=== PATIENT | female | born 1965 | race Two or more races ===

== ENCOUNTER 2016-05-29 21:08 | Inpatient (IN) | payer BC, MEDICAID ==
[~2016-05-29] VITALS: Ht 160 cm; Wt 490.3 kg
[2016-05-30] MEDS ORDERED: METO-306 PO (00:26)
[2016-05-30 00:51] VITALS: BP 155/64
[2016-05-30] MEDS ORDERED: ACETAMINOPHEN 325 MG TABLET PO PRN (01:00)
[2016-05-30] MEDS ORDERED: ENOXAPARIN SODIUM 40 MG/0.4 ML DISP.SYRIN SQ SCH (01:00)
[2016-05-30] MEDS ORDERED: MAGNESIUM HYDROXIDE 30 ML UDC PO PRN (01:00)
[2016-05-30] MEDS ORDERED: Z GUARD REMEDY 2 OZ OINT TP PRN (01:00)
[2016-05-30] MEDS ORDERED: HYDROCODONE/APAP 5/325MG 1 EACH TABLET PO PRN (01:00)
[2016-05-30] MEDS ORDERED: MAG HYDROX/AL HYDROX/SIMETH 30 ML UDC PO PRN (01:00)
[2016-05-30] MEDS ORDERED: ZOLPIDEM TARTRATE 5 MG TABLET PO PRN (01:00)
[2016-05-30] MEDS ORDERED: ONDANSETRON HCL/PF 4 MG/2 ML VIAL IVP PRN (01:00)
[2016-05-30] MEDS ORDERED: METOPROLOL TARTRATE 50 MG TABLET ONE (02:03)
[2016-05-30] MEDS ORDERED: METOPROLOL SUCCINATE 50 MG TAB.SR.24H PO ONE (02:16)
[2016-05-30] MEDS: METOPROLOL SUCCINATE 50 MG TAB.SR.24H PO SCH (02:20)
[2016-05-30 08:00] VITALS: BP 157/69
[2016-05-30] MEDS ORDERED: CINA30TA PO (08:14)
[2016-05-30] MEDS ORDERED: SEVE800T PO (08:14)
[2016-05-30] MEDS ORDERED: PANT40TA2 PO (08:14)
[2016-05-30] MEDS ORDERED: NIFE60TA2 PO (08:14)
[2016-05-30 08:40] LABS: CREATININE 5.3 mg/dL (0.6-1.3); POTASSIUM 4.2 mmol/L (3.5-5.1)
[2016-05-30] MEDS: PANTOPRAZOLE 40 MG TABLET.DR PO SCH (08:40)
[2016-05-30 11:07] LABS: BASOPHILS % (AUTO) 0.8 % (0.0-2.0); DIFF TOTAL % 100 %; EOSINOPHILS # (AUTO) 0.2 /CMM (0.0-0.7); EOSINOPHILS % (AUTO) 4.1 % (0.0-6.0); HEMATOCRIT 32 % (33-45); HEMOGLOBIN 10.5 g/dL (11.5-14.8); LYMPHOCYTES # (AUTO) 0.7 /CMM (0.8-4.8); LYMPHOCYTES % (AUTO) 14.8 % (20.0-44.0); MEAN CORPUSCULAR HEMOGLOBIN 32 PG (26.0-33.0); MEAN CORPUSCULAR HGB CONC 33 g/dl (31.0-36.0); MEAN CORPUSCULAR VOLUME 96 fL (82-100); MONOCYTES # (AUTO) 0.3 /CMM (0.1-1.30); MONOCYTES % (AUTO) 7.4 % (2.0-12.0); NEUTROPHILS # (AUTO) 3.3 /CMM (1.8-8.9); NEUTROPHILS % (AUTO) 72.9 % (43.0-81.0); PLATELET COUNT (AUTO) 157 /CMM (150-450); RED BLOOD CELL COUNT(AUTO) 3.28 MIL/uL (4.0-5.2); WHITE BLOOD COUNT (AUTO) 4.6 K/uL (4.3-11.0)
[2016-05-30 11:16] LABS: ALBUMIN 3.8 g/dL (3.4-5.0); BILIRUBIN,DIRECT 0.1 mg/dL (0.0-0.2); BILIRUBIN,TOTAL 0.5 mg/dL (0.2-1.0); INDIRECT BILIRUBIN 0.4 mg/dL (0.0-1.1); PHOSPHORUS 3.4 mg/dL (2.5-4.9); TOTAL PROTEIN, SERUM 7.6 g/dL (6.4-8.2)
[2016-05-30 11:40] LABS: THYROID STIMULATING HORMONE 1.035 uIU/mL (0.358-3.74)
[2016-05-30 16:00] VITALS: BP 176/75
[2016-05-30 16:30] VITALS: BP 147/72
[2016-05-30] MEDS: SEVELAMER CARBONATE 800 MG TABLET PO SCH (17:18)
[2016-05-30 20:00] VITALS: BP 149/73
[2016-05-30] MEDS: ASPIRIN 81 MG TAB.CHEW PO SCH (20:24)
[2016-05-30] MEDS: HEPARIN SODIUM, PORCINE 5000 UNITS/1 ML VIAL SQ SCH (20:26)
[2016-05-31] VITALS: BP 133/65
[2016-05-31] MEDS: METOPROLOL SUCCINATE 50 MG TAB.SR.24H PO SCH ×2 (01:00→02:04)
[2016-05-31 04:00] VITALS: BP 153/71
[2016-05-31 06:25] LABS: CALCIUM, SERUM 9.1 mg/dL (8.5-10.1); PHOSPHORUS 3.4 mg/dL (2.5-4.9); POTASSIUM 4.2 mmol/L (3.5-5.1)
[2016-05-31 06:34] LABS: TROPONIN I 0.167 ng/mL (0.00-0.056)
[2016-05-31 06:41] LABS: BASOPHILS % (AUTO) 0.6 % (0.0-2.0); DIFF TOTAL % 100 %; EOSINOPHILS # (AUTO) 0.2 /CMM (0.0-0.7); EOSINOPHILS % (AUTO) 2.9 % (0.0-6.0); HEMATOCRIT 30 % (33-45); LYMPHOCYTES # (AUTO) 0.7 /CMM (0.8-4.8); LYMPHOCYTES % (AUTO) 12.7 % (20.0-44.0); MEAN CORPUSCULAR HEMOGLOBIN 32 PG (26.0-33.0); MEAN CORPUSCULAR HGB CONC 33 g/dl (31.0-36.0); MEAN CORPUSCULAR VOLUME 96 fL (82-100); MONOCYTES # (AUTO) 0.5 /CMM (0.1-1.30); MONOCYTES % (AUTO) 9.8 % (2.0-12.0); PLATELET COUNT (AUTO) 149 /CMM (150-450); RED BLOOD CELL COUNT(AUTO) 3.16 MIL/uL (4.0-5.2); WHITE BLOOD COUNT (AUTO) 5.4 K/uL (4.3-11.0)
[2016-05-31 07:05] VITALS: BP 150/69
[2016-05-31 08:00] VITALS: BP 150/69
[2016-05-31] MEDS: PANTOPRAZOLE 40 MG TABLET.DR PO SCH (08:23)
[2016-05-31] MEDS: ASPIRIN 81 MG TAB.CHEW PO SCH (08:23)
[2016-05-31] MEDS: SEVELAMER CARBONATE 800 MG TABLET PO SCH ×2 (08:23→12:53)
[2016-05-31 08:24] VITALS: BP 150/69
[2016-05-31] MEDS: HEPARIN SODIUM, PORCINE 5000 UNITS/1 ML VIAL SQ SCH (08:25)
[2016-05-31] MEDS ORDERED: NIFEdipine XL (30MG) 30 MG TAB PO SCH (09:00)
[2016-05-31] MEDS ORDERED: CINACALCET HCL 30 MG TABLET PO SCH (09:00)
[2016-05-31] MEDS ORDERED: ASPI81TA2 PO (14:03)
== END 2016-05-31 15:30 | disposition home or self-care (01) | DRG 308 ==
LOC: MED 23:34 → TELE 05-30 01:33 → MED 05-30 11:16 → TELE 05-30 11:16 → MED 05-31 10:17
PROVIDERS: ADMIT Internal Medicine; ATTEND Internal Medicine
PROC: 5A1D00Z (ICD-10-PCS; principal; 2016-05-30)
DX: R00.2 Palpitations (principal); N18.6 End stage renal disease; I12.0 Hypertensive chronic kidney disease with stage 5 chronic kidney disease or end stage renal disease; D63.8 Anemia in other chronic diseases classified elsewhere; Z99.2 Dependence on renal dialysis; E21.3 Hyperparathyroidism, unspecified
CPT/HCPCS: 36415; 71010-TC; 80048-TC; 80061-TC; 80076-TC; 82306; 83735-TC; 84100-TC; 84439-TC; 84443-TC; 84484-TC; 85025-TC; 87081-TC; 90935-TC; 93307-TC; J1644; J2405

== ENCOUNTER 2018-09-26 08:35 | Inpatient (IN) | payer BC, MEDICAID, OTHER ==
[2018-09-26] VITALS (24 sets, daily range): BP systolic 130–180; BP diastolic 60–112
[~2018-09-26] VITALS: Ht 165.1 cm; Wt 54.9 kg
[~2018-09-26 08:35] MED LIST: ASPI-1169 PO; CINA30TA2 PO; METO-358 PO; NIFE60TA2 PO; PANT40TA2 PO; SEVE800T7 PO
[2018-09-26 08:51] LABS: BASOPHILS # (AUTO) 0.1 /CMM (0.0-0.2); BASOPHILS % (AUTO) 0.9 % (0.0-2.0); HEMATOCRIT 32 % (33-45); HEMOGLOBIN 10.7 g/dL (11.5-14.8); LYMPHOCYTES # (AUTO) 0.9 /CMM (0.8-4.8); LYMPHOCYTES % (AUTO) 10.3 % (20.0-44.0); MEAN CORPUSCULAR HGB CONC 33 g/dl (31.0-36.0); MEAN CORPUSCULAR VOLUME 100 fL (82-100); MONOCYTES # (AUTO) 0.4 /CMM (0.1-1.30); MONOCYTES % (AUTO) 4.6 % (2.0-12.0); NEUTROPHILS # (AUTO) 7.3 /CMM (1.8-8.9); NEUTROPHILS % (AUTO) 83.2 % (43.0-81.0); PLATELET COUNT (AUTO) 204 /CMM (150-450); RED BLOOD CELL COUNT(AUTO) 3.25 MIL/uL (4.0-5.2); WHITE BLOOD COUNT (AUTO) 8.8 K/uL (4.3-11.0)
[2018-09-26 09:01] LABS: CALCIUM, SERUM 8.7 mg/dL (8.5-10.1)
[2018-09-26 09:05] LABS: CREATININE 11.4 mg/dL (0.6-1.3); POTASSIUM 7.2 mmol/L (3.5-5.1)
[2018-09-26] MEDS ORDERED: CALCIUM CHLORIDE 1,000 MG/10 ML DISP.SYRIN ONE (09:07)
[2018-09-26] MEDS ORDERED: SODIUM BICARBONATE SYR 50 MEQ/50 ML DISP.SYRIN ONE (09:07)
[2018-09-26] MEDS ORDERED: DEXTROSE 50%-WATER 50 ML DISP.SYRIN ONE (09:07)
[2018-09-26] MEDS ORDERED: INSULIN REGULAR, HUMAN 100 UNIT/ML 10 ML VIAL ONE (09:07)
[2018-09-26] MEDS ORDERED: METO100T14 PO (09:25)
[2018-09-26] MEDS ORDERED: ASPI81TA44 PO (09:25)
[2018-09-26] MEDS ORDERED: CINA30TA2 PO (09:25)
[2018-09-26] MEDS ORDERED: VIT1TABL46 PO (09:25)
[2018-09-26] MEDS ORDERED: DILT120T2 PO (09:25)
[2018-09-26] MEDS ORDERED: OMEP20CA10 PO (09:25)
--- NOTE | 2018-09-26 09:25 | NUR ---
[facility] CALLED. GERALDINE MOOND.
[2018-09-26] MEDS ORDERED: CALCIUM CHLORIDE 1,000 MG/10 ML DISP.SYRIN IV ONE (09:30)
[2018-09-26] MEDS ORDERED: SODIUM POLYSTYRENE SULFONATE 15 G/60 ML BOTTLE PO ONE (09:30)
[2018-09-26] MEDS ORDERED: INSULIN REGULAR, HUMAN 100 UNIT/ML 10 ML VIAL IV ONE (09:30)
[2018-09-26] MEDS ORDERED: DEXTROSE 50%-WATER 50 ML DISP.SYRIN IV ONE (09:30)
[2018-09-26] MEDS ORDERED: SODIUM BICARBONATE SYR 50 MEQ/50 ML DISP.SYRIN IV ONE (09:30)
--- NOTE | 2018-09-26 09:36 | NUR ---
EPIC CALLED ANDONIAN PAGED
--- NOTE | 2018-09-26 09:41 | NUR ---
CALLED [facility] [phone] DR. JENNINGS
--- NOTE | 2018-09-26 10:30 | NUR ---
REPORT GIVEN TO LOBITO MARTIN FOR CONTINUITY OF CARE IN ICU
--- NOTE | 2018-09-26 11:00 | NUR ---
DRYWALL FINISHING FOREMAN ADMITTING NOTES: 1100H Rec'd pt from ER, transported via gurney. Pt is A/O x 4. No SOB while on room air. Placed on telemonitor, SB 58bpm. Has R AC G20, SL, flushing well, w/ no s/sx of infection/infiltration noted. L AVF, +bruit/thrill (L arm prec observed). Pt oriented to room. 1130H HD tx consent secured & signed by pt. Placed in the chart. HD started c/o Celia MARTIN. 1140H Pt seen & examined by Dr. Valerio w/ orders made & carried out. 1410H HD ended w/ 1.5 L out. Pt tolerated well.
[2018-09-26] MEDS ORDERED: ONDANSETRON HCL/PF 4 MG/2 ML VIAL IVP PRN (12:00)
[2018-09-26] MEDS ORDERED: ACETAMINOPHEN 325 MG TABLET PO PRN (12:00)
[2018-09-26] MEDS ORDERED: HYDROCODONE/APAP 5/325MG 1 EACH TABLET PO PRN (12:00)
[2018-09-26] MEDS ORDERED: MAG HYDROX/AL HYDROX/SIMETH 30 ML UDC PO PRN (12:00)
[2018-09-26] MEDS ORDERED: Z GUARD REMEDY 2 OZ OINT TP PRN (12:00)
[2018-09-26] MEDS ORDERED: MAGNESIUM HYDROXIDE 30 ML UDC PO PRN (12:00)
[2018-09-26] MEDS ORDERED: ZOLPIDEM TARTRATE 5 MG TABLET PO PRN (12:00)
[2018-09-26] MEDS: SEVELAMER CARBONATE 800 MG TABLET PO SCH ×2 (13:34→17:12)
--- NOTE | 2018-09-26 18:23 | NUR ---
RN CLOSING NOTES: No significant changes noted w/in shift. Pt resting comfortably at bedside, no c/o pain/discomfort. IV line access kept patent & intact. Safety precaution kept in place at all times w/ bed in lowest & locked pos. Call light placed w/in reach. Will endorse to PM RN for LUIS.
--- NOTE | 2018-09-26 19:30 | NUR ---
ENGINEERING SPECIALIST TECHNICIAN NOTE RECEIVED PT A/O X4 AND ABLE TO VERBALIZE NEEDS. FAMILY AT BEDSIDE. ON ROOM AIR AND SATURATING WELL. BREATHING REGULAR AND UNLABORED. TELE-SR 60'S. NO C/O PAIN OR DISTRESS NOTED. IV R ARM CLEAN AND DRY. LEFT ARM AV FISTULA IN PLACE WITH POSITIVE BRUIT AND THRILL PRESENT. NO BP OR VENIPUNCTURE PRECAUTIONS TO LEFT ARM OBSERVED. CALL LIGHT WITHIN REACH. WILL CONTINUE TO MONITOR.
[2018-09-26] MEDS ORDERED: DILTIAZEM HCL CD 180 MG PO SCH (22:00)
[2018-09-27] VITALS (17 sets, daily range): BP systolic 131–182; BP diastolic 61–94
--- NOTE | 2018-09-27 02:39 | NUR ---
HAM FACER NOTE PT SBP 170'S AND ASYMPTOMATIC. SPOKE WITH MEDICAL EDUCATOR ANRAYAN DNP WITH ORDERS TO GIVE HYDRALAZINE 10MG PO Q6H PRN FOR SBP >160. ORDERS NOTED AND CARRIED OUT. WILL MONITOR.
[2018-09-27] MEDS ORDERED: hydrALAZINE HCL 10 MG TABLET PO PRN (03:00)
[2018-09-27 04:37] LABS: CALCIUM, SERUM 8.9 mg/dL (8.5-10.1); MAGNESIUM 2.6 mg/dL (1.8-2.4); PHOSPHORUS 5.4 mg/dL (2.5-4.9); POTASSIUM 4.4 mmol/L (3.5-5.1)
[2018-09-27 04:44] LABS: BASOPHILS # (AUTO) 0.1 /CMM (0.0-0.2); BASOPHILS % (AUTO) 1.3 % (0.0-2.0); EOSINOPHILS % (AUTO) 1.8 % (0.0-6.0); HEMATOCRIT 29 % (33-45); HEMOGLOBIN 9.8 g/dL (11.5-14.8); LYMPHOCYTES # (AUTO) 0.8 /CMM (0.8-4.8); MEAN CORPUSCULAR HGB CONC 34 g/dl (31.0-36.0); MEAN CORPUSCULAR VOLUME 97 fL (82-100); MONOCYTES # (AUTO) 0.5 /CMM (0.1-1.30); MONOCYTES % (AUTO) 10.2 % (2.0-12.0); NEUTROPHILS # (AUTO) 3.2 /CMM (1.8-8.9); NEUTROPHILS % (AUTO) 68.7 % (43.0-81.0); PLATELET COUNT (AUTO) 151 /CMM (150-450); RED BLOOD CELL COUNT(AUTO) 2.98 MIL/uL (4.0-5.2); WHITE BLOOD COUNT (AUTO) 4.7 K/uL (4.3-11.0)
[2018-09-27] MEDS ORDERED: PANTOPRAZOLE 40 MG TABLET.DR PO SCH (07:30)
[2018-09-27] MEDS: SEVELAMER CARBONATE 800 MG TABLET PO SCH ×2 (07:38→12:05)
[2018-09-27] MEDS: AMLODIPINE BESYLATE 10 MG TABLET PO SCH ×3 (08:26→09:00)
--- NOTE | 2018-09-27 08:54 | NUR ---
Confirmed w/ Andrea HD RN that pt will have HD today. BP med held at this time.
[2018-09-27] MEDS ORDERED: ASPIRIN EC 81 MG TABLET.DR PO SCH (09:00)
[2018-09-27] MEDS ORDERED: VIT B CMPLX 3/FA/VIT C/BIOTIN 1 TAB TABLET PO SCH (09:00)
[2018-09-27] MEDS ORDERED: CINACALCET HCL 30 MG TABLET PO SCH (09:00)
--- NOTE | 2018-09-27 11:32 | NUR ---
Pt seen & examined by Dr. Wetzel w/ orders to DC pt to home today after HD.
[2018-09-27] MEDS ORDERED: AMLO10TA7 PO (12:46)
--- NOTE | 2018-09-27 15:46 | NUR ---
DATA MANAGEMENTELECTRONIC ASSEMBLY NOTES: Pt DC'd to home, self care as ordered. DC instructions & education provided to the pt w/ verbalization of understanding. IV line access removed, pressure dressing applied, no bleeding noted. Pt tolerated HD tx c/o [place], CORBY RN w/ 1L output. VS WNL. Skin remains intact. All belongings sent w/ pt, per pt nothing is missing. Family at bedside. Pt left the unit in stable condition, ambulatory w/ steady gait. No concerns/issues identified during DC.
[2018-09-28] MEDS ORDERED: ALBU18HF2 IH (17:11)
== END 2018-09-27 15:45 | disposition home or self-care (01) | DRG 201 ==
LOC: ER 08:35 → ICU 11:00
PROVIDERS: ADMIT Family Medicine
DX: R00.1 Bradycardia, unspecified (principal); I21.A1 Myocardial infarction type 2; I12.0 Hypertensive chronic kidney disease with stage 5 chronic kidney disease or end stage renal disease; N18.6 End stage renal disease; E87.5 Hyperkalemia; D63.1 Anemia in chronic kidney disease; Z99.2 Dependence on renal dialysis; N25.81 Secondary hyperparathyroidism of renal origin; K21.9 Gastro-esophageal reflux disease without esophagitis; Z90.12 Acquired absence of left breast and nipple; Z79.82 Long term (current) use of aspirin; Z79.899 Other long term (current) drug therapy; Z82.49 Family history of ischemic heart disease and other diseases of the circulatory system; Z82.3 Family history of stroke; D63.8 Anemia in other chronic diseases classified elsewhere; Y92.009 Unspecified place in unspecified non-institutional (private) residence as the place of occurrence of the external cause; T44.7X5A Adverse effect of beta-adrenoreceptor antagonists, initial encounter; T46.1X5A Adverse effect of calcium-channel blockers, initial encounter; R73.9 Hyperglycemia, unspecified
CPT/HCPCS: 36415; 71045-TC; 80048-TC; 80061-TC; 83735-TC; 84100-TC; 84484-TC; 85025-TC; 86706; 86803; 87081-TC; 87340; 90935-TC; 93307-TC; A6402; G0378; J1815; J3490

== ENCOUNTER 2018-09-28 15:08 | Inpatient (IN) | payer OTHER ==
[~2018-09-28] VITALS: Ht 154.9 cm; Wt 53.5 kg
[~2018-09-28 15:08] MED LIST changes: +AMLO10TA7 PO; -ASPI-1169 PO; +ASPI81TA44 PO; -METO-358 PO; -NIFE60TA2 PO; +OMEP20CA10 PO; -PANT40TA2 PO; +VIT1TABL46 PO
--- NOTE | 2018-09-28 15:30 | NUR ---
PATIENT BIB FAMILY FOR PALPITATION WHILE HAVING DIALYSIS, DIALYZED FOR 1HR OUT OF 3 HRS AND 45MINS, DENIES ANY CP. ON ROOM AIR, BREATHING EVENLY AND UNLABORED. CONNECTED TO THE MONITOR AND PULSE OX. KEPT COMFORTABLE, WILL CONTINUE TO MONITOR ACCORDINGLY.
[2018-09-28 15:52] LABS: BASOPHILS # (AUTO) 0.1 /CMM (0.0-0.2); BASOPHILS % (AUTO) 1.2 % (0.0-2.0); EOSINOPHILS % (AUTO) 2.7 % (0.0-6.0); HEMATOCRIT 35 % (33-45); HEMOGLOBIN 12.2 g/dL (11.5-14.8); LYMPHOCYTES # (AUTO) 0.6 /CMM (0.8-4.8); LYMPHOCYTES % (AUTO) 9.9 % (20.0-44.0); MEAN CORPUSCULAR HGB CONC 35 g/dl (31.0-36.0); MEAN CORPUSCULAR VOLUME 97 fL (82-100); MONOCYTES # (AUTO) 0.4 /CMM (0.1-1.30); MONOCYTES % (AUTO) 7.6 % (2.0-12.0); NEUTROPHILS # (AUTO) 4.5 /CMM (1.8-8.9); NEUTROPHILS % (AUTO) 78.6 % (43.0-81.0); PLATELET COUNT (AUTO) 170 /CMM (150-450); RED BLOOD CELL COUNT(AUTO) 3.61 MIL/uL (4.0-5.2); WHITE BLOOD COUNT (AUTO) 5.7 K/uL (4.3-11.0)
[2018-09-28] MEDS ORDERED: DILTIAZEM HCL 25 MG IV ONE (15:56)
[2018-09-28] MEDS ORDERED: DILTIAZEM HCL 50 MG IV IV ONE (16:00)
[2018-09-28 16:12] LABS: CALCIUM, SERUM 9.1 mg/dL (8.5-10.1); CREATININE 5.5 mg/dL (0.6-1.3); POTASSIUM 3.4 mmol/L (3.5-5.1)
[2018-09-28 16:16] LABS: ALBUMIN 3.6 g/dL (3.4-5.0); BILIRUBIN,DIRECT 0.1 mg/dL (0.0-0.2); BILIRUBIN,TOTAL 0.3 mg/dL (0.2-1.0); TOTAL PROTEIN, SERUM 8.1 g/dL (6.4-8.2)
[2018-09-28] MEDS ORDERED: ALBU18HF2 IH (17:11)
--- NOTE | 2018-09-28 18:04 | NUR ---
CALLED FOR BED AND TURNED IN MOVE SHEET
--- NOTE | 2018-09-28 19:25 | NUR ---
in bed restingcomfortably. will cont to monitor l
--- NOTE | 2018-09-28 19:37 | NUR ---
endorsed to next shift RN for matthew.
[2018-09-28 20:15] VITALS: BP 161/71
--- NOTE | 2018-09-28 20:15 | NUR ---
TRANSFERRED TO THIRD FLOOR RM 308-2 UNDER ACLS PROTOCOL. STABLE CONDITION
[2018-09-28] MEDS ORDERED: MAGNESIUM HYDROXIDE 30 ML UDC PO PRN (20:30)
[2018-09-28] MEDS ORDERED: ALBUTEROL FS 2.5 MG/0.5 ML VIAL.NEB NEB PRN (20:30)
[2018-09-28] MEDS ORDERED: ONDANSETRON HCL/PF 4 MG/2 ML VIAL IVP PRN (20:30)
[2018-09-28] MEDS ORDERED: MAG HYDROX/AL HYDROX/SIMETH 30 ML UDC PO PRN (20:30)
[2018-09-28] MEDS ORDERED: HYDROCODONE/APAP 5/325MG 1 EACH TABLET PO PRN (20:30)
[2018-09-28] MEDS ORDERED: TEMAZEPAM 15 MG CAPSULE PO PRN (20:30)
[2018-09-28] MEDS ORDERED: CLONIDINE HCL 0.1 MG TABLET PO PRN (20:30)
[2018-09-28] MEDS ORDERED: MORPHINE SULFATE INJ 2 MG/ML DISP.SYRIN IV PRN (20:30)
[2018-09-28] MEDS ORDERED: ACETAMINOPHEN 325 MG TABLET PO PRN (20:30)
--- NOTE | 2018-09-28 21:00 | NUR ---
LOADING MACHINE OPERATOR ADMISSION NOTES RECEIVED PATIENT FROM ER VIA [facility]. FAMILY AT BESIDE. PATIENT IS ALERT AND ORIENTED X4, VERBALLY RESPONSIVE, ABLE TO MAKE NEEDS KNOWN. SINHALA SPEAKER. BREATHING ERICK AND UNLABORED. NO SOB NOTED. TOLERATING ROOM AIR. DENIES PAIN OR DISCOMFORT. DENIES NAUSEA AND VOMITING. IV ON RIGHT HAND G#20 INTACT AND PATENT. SKIN DRY AND WARM TO TOUCH. AFEBRILE. PATIENT IS AMBULATORY WITH STEADY GAIT. SKIN CHECK RENDERED WITH NO ISSUES NOTED. PATIENT NOTED WITH LEFT UPPER ARM FISTULA - DRESSING CLEAN DRY AND INTACT. ORIENTED TO THE USE OF UNIT AMENITIES. INSTRUCTED TO THE USE OF THE CALL LIGHT. ALL OTHER NEEDS MET. SAFETY MEASURES IN PLACE. CALL LIGHT WITHIN REACH. WILL CONTINUE TO MONITOR.
[2018-09-29] VITALS: BP 155/87
[2018-09-29 04:00] VITALS: BP 157/72
[2018-09-29 06:41] LABS: BASOPHILS % (AUTO) 1.2 % (0.0-2.0); EOSINOPHILS % (AUTO) 4.9 % (0.0-6.0); HEMATOCRIT 31 % (33-45); HEMOGLOBIN 10.5 g/dL (11.5-14.8); LYMPHOCYTES # (AUTO) 0.8 /CMM (0.8-4.8); LYMPHOCYTES % (AUTO) 21.1 % (20.0-44.0); MEAN CORPUSCULAR HGB CONC 34 g/dl (31.0-36.0); MEAN CORPUSCULAR VOLUME 98 fL (82-100); MONOCYTES # (AUTO) 0.4 /CMM (0.1-1.30); MONOCYTES % (AUTO) 10.4 % (2.0-12.0); NEUTROPHILS # (AUTO) 2.2 /CMM (1.8-8.9); NEUTROPHILS % (AUTO) 62.4 % (43.0-81.0); PLATELET COUNT (AUTO) 144 /CMM (150-450); WHITE BLOOD COUNT (AUTO) 3.6 K/uL (4.3-11.0)
--- NOTE | 2018-09-29 06:44 | NUR ---
SPRING MACHINE OPERATOR CLOSING NOTES PATIENT RESTING IN BED. NO ACUTE CHANGES THROUGHOUT OUT SHIFT. IN NO DISTRESS. BREATHING EVEN AND UNLABORED. TOLERATING ROOM AIR. NO COMPLAINTS OF PAIN OR DISCOMFORT. SR ON TELE MONITOR. ALL OTHER NEEDS MET. SAFETY MEASURES IN PLACE. CALL LIGHT WITHIN REACH. WILL ENDORSE TO ONCOMING NURSE FOR LUIS.
[2018-09-29 06:50] LABS: ALBUMIN 3.1 g/dL (3.4-5.0); BILIRUBIN,TOTAL 0.4 mg/dL (0.2-1.0); CALCIUM, SERUM 9.4 mg/dL (8.5-10.1); MAGNESIUM 2.7 mg/dL (1.8-2.4); PHOSPHORUS 5.4 mg/dL (2.5-4.9); POTASSIUM 4.9 mmol/L (3.5-5.1); TOTAL PROTEIN, SERUM 6.6 g/dL (6.4-8.2)
[2018-09-29 06:53] LABS: CREATININE 7.7 mg/dL (0.6-1.3)
[2018-09-29] MEDS ORDERED: OMEPRAZOLE 20 MG CAPSULE.DR PO SCH (07:30)
--- NOTE | 2018-09-29 07:45 | NUR ---
Tele/RN - Assessment Patient awake, A/O x 4, no complaints overnight, denies chest pain/palpitations, no apparent distress noted, afebrile, stable on room air. Tele shows SR, pending cardiac and nephro consult. Labs reviewed, noted with low WBC and albumin, elevated phos and magnesium level. Skin is intact. Patient is ambulatory with steady gait. Patient educated on plan of care. Will continue with current medical management.
[2018-09-29] MEDS: PANTOPRAZOLE 40 MG TABLET.DR PO SCH (07:49)
[2018-09-29] MEDS: SEVELAMER CARBONATE 800 MG TABLET PO SCH ×3 (07:49→17:09)
[2018-09-29 08:00] VITALS: BP 142/78
[2018-09-29] MEDS: AMLODIPINE BESYLATE 10 MG TABLET PO SCH (08:18)
[2018-09-29] MEDS: CINACALCET HCL 30 MG TABLET PO SCH (08:18)
[2018-09-29] MEDS: VIT B CMPLX 3/FA/VIT C/BIOTIN 1 TAB TABLET PO SCH (08:18)
[2018-09-29] MEDS: ASPIRIN EC 81 MG TABLET.DR PO SCH (08:18)
--- NOTE | 2018-09-29 09:15 | NUR ---
Tele/RN - Cardiac consult Seen and examined by Dr. Gautam with order to transfer patient for ablation and continue cardiac monitoring. systems software manager made aware.
--- NOTE | 2018-09-29 10:00 | NUR ---
Tele/RN - HD treatment HD treatment ongoing, denies palpitation/chest pain, will continue to monitor closely.
--- NOTE | 2018-09-29 11:15 | NUR ---
Tele/RN - Nephrology consult Seen and examined by Dr. Lyn with order for HD treatment every other day.
--- NOTE | 2018-09-29 12:00 | NUR ---
Tele/RN - HD treatment HD treatment completed, removed 2 liters, tolerated well.
--- NOTE | 2018-09-29 15:00 | NUR ---
Tele/RN - Notes Per insurance, transfer pt to [facility], accepting doctor is Dr. Aly Kendrick, pending bed availability. Patient made aware.
[2018-09-29 16:00] VITALS: BP 151/70
--- NOTE | 2018-09-29 18:21 | NUR ---
Tele/RN - End of shift summary No significant change in condition seen. Possible transfer tonight if bed is available at [facility]. Per Dr. Kendrick, accepting doctor at [facility], plan for cardiac ablation around 15:00 tomorrow if able to schedule. Will endorse to night nurse accordingly.
--- NOTE | 2018-09-29 19:30 | NUR ---
BEAD MAKER OPENING NOTES RECEIVED PATIENT IN BED AWAKE. FAMILY AT BEDSIDE. PATIENT IS ALERT AND ORIENTED X4, VERBALLY RESPONSIVE, ABLE TO MAKE NEEDS KNOWN. OCCITAN SPEAKER. BREATHING ERICK AND UNLABORED. NO SOB NOTED. TOLERATING ROOM AIR. DENIES PAIN OR DISCOMFORT. NO FACIAL GRIMACING. IV ON RIGHT HAND G#20 INTACT AND PATENT. SKIN DRY AND WARM TO TOUCH. AFEBRILE. ALL OTHER NEEDS MET. SAFETY MEASURES IN PLACE. CALL LIGHT WITHIN REACH. WILL CONTINUE TO MONITOR.
[2018-09-29 20:00] VITALS: BP 129/76
[2018-09-30 00:13] VITALS: BP 152/78
[2018-09-30 05:00] VITALS: BP 146/75
--- NOTE | 2018-09-30 06:36 | NUR ---
PRODUCTION POSTING CLERK CLOSING NOTES PATIENT RESTING IN BED. NO ACUTE CHANGES THROUGHOUT OUT SHIFT. IN NO DISTRESS. BREATHING EVEN AND UNLABORED. TOLERATING ROOM AIR. NO COMPLAINTS OF PAIN OR DISCOMFORT. SR ON TELE MONITOR. ALL OTHER NEEDS MET. ANTICIPATING TRANSFER TO [facility] FOR CARDIAC ABLATION. DISCHARGE PAPER WORK PREPARED. PATIENT KEPT NPO PAST MIDNIGHT FOR PROCEDURE. SAFETY MEASURES IN PLACE. CALL LIGHT WITHIN REACH. WILL ENDORSE TO ONCOMING NURSE FOR LUIS.
[2018-09-30] MEDS: PANTOPRAZOLE 40 MG TABLET.DR PO SCH (07:30)
[2018-09-30] MEDS: SEVELAMER CARBONATE 800 MG TABLET PO SCH ×2 (08:00→13:00)
--- NOTE | 2018-09-30 08:00 | NUR ---
MS RN NOTES PATIENT IN BED RESTING. ALERT, ORIENTED X3 DENIES ANY PAIN OR DISCOMFORT. BED IN LOW LOCKED POSITION. CALL LIGHT WITHIN REACH. PATIENT NPO FOR SCHEDULED PROCEDURE AT [facility]. PERIPHERAL IV INTACT PATENT. WILL CONTINUE TO MONITOR.
[2018-09-30 09:00] VITALS: BP 137/78
[2018-09-30] MEDS: CINACALCET HCL 30 MG TABLET PO SCH (09:00)
[2018-09-30] MEDS: AMLODIPINE BESYLATE 10 MG TABLET PO SCH (09:00)
[2018-09-30] MEDS: ASPIRIN EC 81 MG TABLET.DR PO SCH (09:00)
[2018-09-30] MEDS: VIT B CMPLX 3/FA/VIT C/BIOTIN 1 TAB TABLET PO SCH (09:00)
--- NOTE | 2018-09-30 11:30 | NUR ---
MS RN NOTES PATIENT TRANSFERRED TO [facility] FOR SCHEDULED ABLATION. REPORT GIVEN TO MARISELA MARTIN AT [facility]. PATIENT TO GO TO ROOM 118. PATIENT ALERT, ORIENTED X4 TEACHING PROVIDED OF PROCEDURE AND TRANSFER. VS WNL. PERIPHERAL IV LEFT IN PLACE DUE TO NEEDED USE AT [facility]. PATIENT PICKED UP BY [facility]. ALL MEDICAL RECORDS AND DISCHARGE PAPERS SENT WITH PATIENT.
--- NOTE | 2018-09-30 17:53 | NUR ---
NOTIFIED BY CHARGE NURSE PATIENT RETURNING BUT TO [facility] IN ROOM 107, REPORT GIVEN TO USHA MARTIN AT [facility].
--- NOTE | 2018-09-30 19:15 | NUR ---
RN [facility] NOTE AWAITING PT RETURN FROM OR S/P ABLASION
--- NOTE | 2018-10-01 02:12 | NUR ---
RN [facility] NOTE CALL TO [facility] SPOKE WITH NK, S/P PACEMAKER, REPORTS PT BEING OBSERVED POSSIBLY BEING TRANSFERRED BACK THIS AM
[2018-10-01] MEDS: PANTOPRAZOLE 40 MG TABLET.DR PO SCH (07:30)
[2018-10-01] MEDS: SEVELAMER CARBONATE 800 MG TABLET PO SCH (08:00)
--- NOTE | 2018-10-01 08:00 | NUR ---
RN NOTE: STILL AWAITING FOR PATIENT'S RETURN TO THE HOSPITAL. PER PM SHIFT NURSE REPORT, PATIENT WAS TRANSFERRED TO [facility]. RAISE DRILLER JASBIR WAS MADE AWARE TO FOLLOW-UP ON THE PATIENT'S CASE.
== END 2018-10-01 08:48 | disposition short-term general hospital (02) | DRG 201 ==
LOC: ER 15:10 → TELE 20:20 → MED 09-30 08:44 → TELE-TD 09-30 16:50
PROVIDERS: ADMIT Internal Medicine; ATTEND Internal Medicine
PROC: 5A1D70Z Performance of Urinary Filtration, Intermittent, Less than 6 Hours Per Day (ICD-10-PCS; principal; 2018-09-29)
DX: I48.91 Unspecified atrial fibrillation (principal); I21.4 Non-ST elevation (NSTEMI) myocardial infarction; I13.11 Hypertensive heart and chronic kidney disease without heart failure, with stage 5 chronic kidney disease, or end stage renal disease; N18.6 End stage renal disease; E87.6 Hypokalemia; E21.3 Hyperparathyroidism, unspecified; I25.2 Old myocardial infarction; D64.9 Anemia, unspecified; K21.9 Gastro-esophageal reflux disease without esophagitis; N25.81 Secondary hyperparathyroidism of renal origin; Z79.82 Long term (current) use of aspirin; Z99.2 Dependence on renal dialysis; Z82.49 Family history of ischemic heart disease and other diseases of the circulatory system; Z82.3 Family history of stroke; Z79.899 Other long term (current) drug therapy
CPT/HCPCS: 36415; 71045-TC; 80048-TC; 80053-TC; 80076-TC; 83735-TC; 84100-TC; 84484-TC; 85025-TC; 85730-TC; 87081-TC; 90935-TC; G0378; J3490

== ENCOUNTER 2018-12-21 10:43 | Emergency (ER) | payer OTHER ==
[~2018-12-21] VITALS: Ht 160 cm; Wt 53.1 kg
[~2018-12-21 10:43] MED LIST changes: +ALBU18HF2 IH; -OMEP20CA10 PO; +OMEP20CA11 PO
--- NOTE | 2018-12-21 10:43 | NUR ---
PT BIB SELF C/O NAUSEA AND DIARRHEA FOR 3 DAYS, PT IS AAOX4, NOT IN RESPIRATORY DISTRESS, HOOKED TO MONITOR, KEPT RESTED AND COMFORTABLE, WILL CONTINUE TO MONITOR.
[2018-12-21] MEDS ORDERED: DIPHENOXYLATE HCL/ATROP SULF 1 UDTAB TABLET PO ONE (11:00)
[2018-12-21] MEDS ORDERED: ONDANSETRON 4 MG TAB.RAPDIS SL ONE (11:00)
--- NOTE | 2018-12-21 11:01 | NUR ---
PT SEEN AND EXAMINED BY
[2018-12-21] MEDS ORDERED: ONDANSETRON 4 MG TAB.RAPDIS ONE (11:09)
[2018-12-21] MEDS ORDERED: DIPHENOXYLATE HCL/ATROP SULF 1 UDTAB TABLET ONE (11:10)
--- NOTE | 2018-12-21 11:15 | NUR ---
ER PHLEB AT BEDSIDE FOR BLOOD DRAW.
[2018-12-21 11:23] LABS: BASOPHILS # (AUTO) 0.1 /CMM (0.0-0.2); BASOPHILS % (AUTO) 2.2 % (0.0-2.0); EOSINOPHILS % (AUTO) 2.8 % (0.0-6.0); HEMATOCRIT 35 % (33-45); HEMOGLOBIN 11.4 g/dL (11.5-14.8); LYMPHOCYTES # (AUTO) 0.7 /CMM (0.8-4.8); LYMPHOCYTES % (AUTO) 12.8 % (20.0-44.0); MEAN CORPUSCULAR HGB CONC 32 g/dl (31.0-36.0); MEAN CORPUSCULAR VOLUME 96 fL (82-100); MONOCYTES # (AUTO) 0.5 /CMM (0.1-1.30); NEUTROPHILS # (AUTO) 3.8 /CMM (1.8-8.9); NEUTROPHILS % (AUTO) 73.2 % (43.0-81.0); PLATELET COUNT (AUTO) 209 /CMM (150-450); RED BLOOD CELL COUNT(AUTO) 3.67 MIL/uL (4.0-5.2); WHITE BLOOD COUNT (AUTO) 5.2 K/uL (4.3-11.0)
[2018-12-21 11:38] LABS: CALCIUM, SERUM 9.9 mg/dL (8.5-10.1); CREATININE 9.3 mg/dL (0.6-1.3); POTASSIUM 6.4 mmol/L (3.5-5.1)
[2018-12-21 11:40] LABS: ALBUMIN 3.5 g/dL (3.4-5.0); BILIRUBIN,DIRECT 0.1 mg/dL (0.0-0.2); BILIRUBIN,TOTAL 0.3 mg/dL (0.2-1.0); TOTAL PROTEIN, SERUM 7.9 g/dL (6.4-8.2)
--- NOTE | 2018-12-21 12:10 | NUR ---
PT IS WHEELED TO CT SCAN VIA [facility].
--- NOTE | 2018-12-21 13:28 | NUR ---
Patient discharged to home in stable condition. Written and verbal after care instructions given. Patient verbalizes understanding of instruction.
[2018-12-21 13:29] VITALS: BP 138/78
== END 2018-12-21 13:29 | disposition home or self-care (01) ==
LOC: ER 10:43
DX: R10.9 Unspecified abdominal pain (principal); R74.8 Abnormal levels of other serum enzymes; I12.0 Hypertensive chronic kidney disease with stage 5 chronic kidney disease or end stage renal disease; N18.6 End stage renal disease; Z99.2 Dependence on renal dialysis; Z98.890 Other specified postprocedural states; Z79.82 Long term (current) use of aspirin; Z79.899 Other long term (current) drug therapy
CPT/HCPCS: 36415; 74176; 80048; 80076; 83690; 85025; 99284; Q0162

== ENCOUNTER 2019-03-28 17:36 | Emergency (ER) | payer OTHER ==
[~2019-03-28] VITALS: Ht 162.6 cm; Wt 54.9 kg
--- NOTE | 2019-03-28 17:48 | NUR ---
"c/o sob x 1 week and back pain, on and off cough" PT AAOX4, -SOB, NAD NOTED, VSS , PENDING MD CODY
[2019-03-28 18:35] LABS: BASOPHILS # (AUTO) 0.1 /CMM (0.0-0.2); BASOPHILS % (AUTO) 1.1 % (0.0-2.0); HEMATOCRIT 29 % (33-45); HEMOGLOBIN 9.3 g/dL (11.5-14.8); LYMPHOCYTES # (AUTO) 0.6 /CMM (0.8-4.8); LYMPHOCYTES % (AUTO) 11.5 % (20.0-44.0); MEAN CORPUSCULAR HGB CONC 32 g/dl (31.0-36.0); MEAN CORPUSCULAR VOLUME 93 fL (82-100); MONOCYTES # (AUTO) 0.5 /CMM (0.1-1.30); MONOCYTES % (AUTO) 9.5 % (2.0-12.0); NEUTROPHILS # (AUTO) 3.8 /CMM (1.8-8.9); NEUTROPHILS % (AUTO) 75.9 % (43.0-81.0); PLATELET COUNT (AUTO) 158 /CMM (150-450); RED BLOOD CELL COUNT(AUTO) 3.14 MIL/uL (4.0-5.2); WHITE BLOOD COUNT (AUTO) 5.1 K/uL (4.3-11.0)
[2019-03-28 18:43] LABS: CALCIUM, SERUM 9.5 mg/dL (8.5-10.1); CREATININE 6.9 mg/dL (0.6-1.3); POTASSIUM 3.9 mmol/L (3.5-5.1)
[2019-03-28] MEDS ORDERED: FUROSEMIDE 40 MG/4 ML VIAL IV ONE (20:30)
[2019-03-28] MEDS ORDERED: FUROSEMIDE 20 MG/2 ML VIAL ONE (20:57)
[2019-03-28] MEDS ORDERED: FUROSEMIDE 100 MG/10 ML VIAL ONE (20:57)
--- NOTE | 2019-03-28 21:53 | NUR ---
Patient discharged to home in stable condition. Written and verbal after care instructions given. Patient verbalizes understanding of instruction. IV removed. Catheter intact and site benign. Pressure and 4x4 applied to site. No bleeding noted.
[2019-03-28 21:55] VITALS: BP 143/66
== END 2019-03-28 21:55 | disposition home or self-care (01) ==
LOC: ER 17:40
DX: R05 Cough (principal); I12.0 Hypertensive chronic kidney disease with stage 5 chronic kidney disease or end stage renal disease; N18.6 End stage renal disease; I48.91 Unspecified atrial fibrillation; Z99.2 Dependence on renal dialysis; Z98.890 Other specified postprocedural states; Z79.82 Long term (current) use of aspirin; Z79.899 Other long term (current) drug therapy
CPT/HCPCS: 36415; 71045; 80048; 85025; 93005; 96374; 99284; J1940 ×2

== ENCOUNTER 2019-07-20 19:34 | Emergency (ER) | payer OTHER ==
[~2019-07-20] VITALS: Ht 154.9 cm; Wt 49.0 kg
[~2019-07-20 19:34] MED LIST changes: -OMEP20CA11 PO; +OMEP20CA15 PO
[2019-07-20] MEDS ORDERED: IPRATROPIUM NEB FS 0.5 MG/2.5 ML AMPUL.NEB NEB ONE (20:00)
[2019-07-20] MEDS ORDERED: ALBUTEROL FS 2.5 MG/3 ML VIAL.NEB NEB ONE (20:00)
--- NOTE | 2019-07-20 20:00 | NUR ---
PT AAOX4. AMBULATORY WITH STEADY GAIT. C/O COUGH AND FEVER. PLACED ON MONITOR AND PULSE OX. NO ACUTE DISTRESS NOTED. AWAITING MD FOR EVAL.
--- NOTE | 2019-07-20 20:05 | NUR ---
CALLED RT FOR BREATHING TREATMENT
[2019-07-20] MEDS ORDERED: ALBUTEROL FS 2.5 MG/3 ML VIAL.NEB ONE (20:10)
[2019-07-20] MEDS ORDERED: IPRATROPIUM NEB FS 0.5 MG/2.5 ML AMPUL.NEB ONE (20:11)
--- NOTE | 2019-07-20 20:17 | NUR ---
PT RECIEVING BREATHING TREATMENT
--- NOTE | 2019-07-20 20:18 | NUR ---
EMT AT BEDSIDE FOR EKG
--- NOTE | 2019-07-20 20:21 | NUR ---
XRAY AT BEDSIDE
[2019-07-20] MEDS ORDERED: ACETAMINOPHEN 325 MG TABLET ONE (20:22)
[2019-07-20 20:25] LABS: BASOPHILS % (AUTO) 0.4 % (0.0-2.0); EOSINOPHILS % (AUTO) 0.1 % (0.0-6.0); HEMATOCRIT 35 % (33-45); HEMOGLOBIN 11.4 g/dL (11.5-14.8); LYMPHOCYTES # (AUTO) 0.2 /CMM (0.8-4.8); LYMPHOCYTES % (AUTO) 3.5 % (20.0-44.0); MEAN CORPUSCULAR HGB CONC 32 g/dl (31.0-36.0); MEAN CORPUSCULAR VOLUME 94 fL (82-100); MONOCYTES # (AUTO) 0.4 /CMM (0.1-1.30); MONOCYTES % (AUTO) 6.6 % (2.0-12.0); NEUTROPHILS # (AUTO) 5.4 /CMM (1.8-8.9); NEUTROPHILS % (AUTO) 89.4 % (43.0-81.0); PLATELET COUNT (AUTO) 148 /CMM (150-450); RED BLOOD CELL COUNT(AUTO) 3.74 MIL/uL (4.0-5.2)
[2019-07-20] MEDS ORDERED: ACETAMINOPHEN 325 MG TABLET PO ONE (20:30)
[2019-07-20 20:32] LABS: CALCIUM, SERUM 10.2 mg/dL (8.5-10.1); CREATININE 6.9 mg/dL (0.6-1.3); POTASSIUM 4.3 mmol/L (3.5-5.1)
[2019-07-20] MEDS ORDERED: LEVOFLOXACIN (750 MG) 750 MG TABLET PO STA (21:11)
[2019-07-20] MEDS ORDERED: LEVOFLOXACIN (500MG) 500 MG TABLET ONE (21:15)
[2019-07-20] MEDS ORDERED: LEVOFLOXACIN (250MG) 250 MG TABLET ONE (21:15)
--- NOTE | 2019-07-20 21:45 | NUR ---
Patient discharged to home in stable condition. Written and verbal after care instructions given. Patient verbalizes understanding of instruction and RX. VSS. No acute distress noted. Pt ambulated with steady gait.
--- NOTE | 2019-07-20 21:45 | NUR ---
IV removed. Catheter intact and site benign. Pressure and 4x4 applied to site. No bleeding noted. Pt fever down.
[2019-07-20 21:52] VITALS: BP 124/78
== END 2019-07-20 21:55 | disposition home or self-care (01) ==
LOC: ER 19:38
DX: J18.9 Pneumonia, unspecified organism (principal); J45.909 Unspecified asthma, uncomplicated; I12.0 Hypertensive chronic kidney disease with stage 5 chronic kidney disease or end stage renal disease; N18.6 End stage renal disease; Z99.2 Dependence on renal dialysis; Z98.890 Other specified postprocedural states; Z79.899 Other long term (current) drug therapy; Z79.82 Long term (current) use of aspirin
CPT/HCPCS: 36415; 71045-TC; 80048-TC; 84484-TC; 85025-TC